=== PATIENT | female | born 1945 | race Two or more races ===

== ENCOUNTER 2024-02-25 05:32 | Observation (INO) | payer OTHER ==
[2024-02-24 12:05] LABS: Absolute Eosinophils 0.3 K/uL (0-0.5); Absolute Lymphocytes (CBC) 1.9 K/uL (0.7-4.9); Absolute Monocytes 0.4 K/uL (0.1-1.3); Absolute Neutrophil 1.7 K/uL (1.8-8.0); Basophils % 0.3 % (0-1.3); Eosinophils % 7.1 % (0-4.4); Hematocrit 42.7 % (36.0-45.0); Hemoglobin 14.1 g/dL (12.0-15.0); Lymphocytes % 44.4 % (15.3-44.8); MCH 29.2 pg (27.0-35.0); MCHC 32.9 g/dL (32.0-36.0); MCV 88.7 fL (80-100); MPV 7.8 fL (7.6-11.3); Monocytes % 9.8 % (3.3-12.3); Neutrophils % 38.4 % (41.7-73.7); Nucleated Red Blood Cells % 0.1 % (0-0); Platelets 204 thou/uL (152-406); RBC Red Blood Cell Count 4.82 M/uL (3.86-4.86); Red Cell Distribution Width 14.2 % (12.1-15.2)
[2024-02-24 12:09] LABS: PT Prothrombin Time 10.7 SECONDS (9.5-12.5); PTT, Activated Partial Thromb 34.6 SECONDS (24.3-36.9); Protime INR 0.97
[2024-02-24 12:20] LABS: Albumin 3.4 g/dL (3.4-5.0); Anion Gap 8.5 mEq/L (5.0-15.0); Bilirubin Total 0.5 mg/dL (0.2-1.0); Globulin 3.4 g/dL (2.3-3.5); Potassium 3.5 mEq/L (3.5-5.1); Protein, Total 6.8 g/dL (6.4-8.2)
--- NOTE | 2024-02-24 12:41 | RAD REPORT ---
EXAM DESCRIPTION: RAD - Chest Single View - 02/24/2024 12:35 pm CLINICAL HISTORY: PREOP Chest pain. COMPARISON: <Comparisons> FINDINGS: Portable technique limits examination quality. The lungs are grossly clear. The heart is normal in size. No displaced fractures. IMPRESSION: No acute intrathoracic process suspected.
[2024-02-24 12:54] LABS: Specific Gravity 1.007 (1.005-1.030); Urine Bilirubin NEGATIVE (Negative); Urine Blood Negative (Negative); Urine Clarity Clear (Clear); Urine Color Colorless (Yellow); Urine Glucose NEGATIVE (Negative); Urine Ketones NEGATIVE (Negative); Urine Microscopic Reflex YN NO UMIC; Urine Nitrite NEGATIVE (Negative); Urine Protein NEGATIVE (Negative); Urine Urobilinogen Normal (Normal); Urine pH 6.5 (5.0-7.0)
[2024-02-25] MEDS: Ringers Lactate 1,000 ML IV ONE ×2 (06:20→10:46)
[2024-02-25] MEDS: LIDOCAINE 1% MPF 5 ML VIAL ONE (06:23)
[2024-02-25] MEDS: FENTANYL CITR 100 MCG/2 ML ONE (06:24)
[2024-02-25] MEDS: EPINEPHRINE 1 MG/ML VIAL ONE (06:24)
[2024-02-25] MEDS: MIDAZOLAM HCL 2 MG/2 ML INJ ONE (06:25)
[2024-02-25] MEDS: BUPIVACAINE 0.25% PF 30 ML VIAL ONE (06:25)
[2024-02-25] MEDS: dexAMETHasone 4 MG/ML VIAL ONE ×2 (06:25→06:31)
[2024-02-25] MEDS: CELECOXIB 100 MG CAPSULE ONE (06:30)
[2024-02-25] MEDS: ACETAMINOPHEN 500 MG TAB ONE (06:30)
[2024-02-25] MEDS: Oxycodone HCl/Acetaminophen 5/325 MG TAB ONE (06:30)
[2024-02-25] MEDS: GABAPENTIN 100 MG CAP ONE (06:30)
[2024-02-25] MEDS: TRANEXAMIC ACID 1,000 MG/10 ML VIAL IV ONE (06:55)
[2024-02-25] MEDS ORDERED: propofoL 200 MG/20 ML VIAL IV ONE ×2 (07:06→07:56)
[2024-02-25] MEDS ORDERED: LIDOCAINE 1% MPF 5 ML VIAL ONE (07:06)
[2024-02-25] MEDS ORDERED: KETAMINE HCL IN 0.9 % NACL 50 MG/5 ML SYRINGE IV ONE (07:06)
[2024-02-25] MEDS: DEXMEDETOMIDINE HCL 200 MCG/2 ML VIAL ONE (07:09)
[2024-02-25] MEDS: MAGNESIUM SULFATE 1 gm IVPB 1 GM/100 ML BAG IV ONE (07:10)
[2024-02-25] MEDS: CEFAZOLIN SODIUM 2 GM/VIAL ONE (08:02)
[2024-02-25] MEDS ORDERED: EPHEDRINE SULF 50 MG/ML VIAL ONE ×2 (08:29→09:00)
[2024-02-25] MEDS ORDERED: KETOROLAC 30 MG/ML INJ ONE (08:42)
[2024-02-25] MEDS ORDERED: ONDANSETRON 4 MG/2 ML VIAL ONE (08:42)
[2024-02-25] MEDS ORDERED: dexAMETHasone 4 MG/ML VIAL ONE (08:42)
--- NOTE | 2024-02-25 09:58 | P.BOP ---
Preoperative diagnosis: left knee arthritis Postoperative diagnosis: left total knee arthoplasty Primary procedure: left total knee replacement Estimated blood loss: 100 ccs Anesthesia: General Complications: None Transferred to: Recovery Room Condition: Good
[2024-02-25] MEDS ORDERED: DOCUSATE NA 100 MG CAP PO PRN (10:01)
[2024-02-25] MEDS ORDERED: ONDANSETRON 4 MG/2 ML VIAL IV PRN (10:01)
[2024-02-25] MEDS ORDERED: HYDROCODONE/APAP 7.5/325 MG TAB PO PRN (10:01)
[2024-02-25] MEDS: NALOXONE 0.4 MG/ML VIAL ONE (10:49)
[2024-02-25 11:49] VITALS: O2SAT 98
[2024-02-25 12:55] VITALS: BMI 23.8
--- NOTE | 2024-02-25 15:58 | P.CNS ---
Date of Consult: 02/25/24 Reason for Consult: Medical management Requesting Physician: Darrick Fuentes Primary Care Provider: Dr. River Chief Complaint: Left knee pain History of Present Illness: 78-year-old female with history of hypertension is admitted to the hospital observation after having a left total knee replacement performed. Orthopedics physician has consulted hospital service for medical management Allergies No Known Allergies Allergy (Verified 02/25/24 07:27) Home Medications: Losartan/Hydrochlorothiazide [Losartan-Hctz 50-12.5 mg Tab] 1 tab PO DAILY 02/03 12/28 - Past Medical/Surgical History Diabetic: No -: htn Past Surgical History: Reviewed- Non-Contributory Psychosocial/ Personal History: Lives at home with family - Social History Smoking Status: Never smoker Alcohol use: No CD- Drugs: No Caffeine use: No Place of Residence: Home Review of Systems 10-point ROS is otherwise unremarkable Musculoskeletal: Leg Pain Physical Examination Temp Pulse Resp BP Pulse Ox 97.6 F 66 12 131/60 93 02/25/24 12:00 02/25/24 12:00 02/25/24 12:00 02/25/24 12:00 02/25/24 12:00 General: Alert, In no apparent distress, Oriented x3 HEENT: Atraumatic, PERRLA, EOMI Neck: Supple, 2+ carotid pulse no bruit, No LAD Respiratory: Clear to auscultation bilaterally, Normal air movement Cardiovascular: Regular rate/rhythm, Normal S1 S2 Gastrointestinal: Normal bowel sounds Musculoskeletal: Other (Dressing to left knee CDI) Integumentary: No rashes Neurological: Normal speech Conclusions/Impression: Assessment: Severe left knee osteoarthritis status post left total knee replacement 02/24 Hypertension Plan: Severe left knee osteoarthritis status post left total knee replacement 02/24 Working PT, ambulatory down hallway with assistance Continue as needed pain medication Plan for home physical therapy Anticoagulation, pain medications at home per Ortho Hypertension Losartan/HCTZ resumed DVT PPX: Lovenox/per orthopedics Code status: Full Critical Care: No Time Spent Managing Pts care (In Minutes): 30
[2024-02-25] MEDS: LOSARTAN/HCTZ 50-12.5 PO SCH (18:50)
[2024-02-25] MEDS: CEFAZOLIN 1 GM in NA CHLORIDE 0.9% 50 ML IVPB SCH (18:51)
[2024-02-25] MEDS: CEFAZOLIN SODIUM 1 GM/VIAL ONE (18:55)
--- NOTE | 2024-02-25 20:55 | OP ---
Date of Procedure: 02/25/2024 Surgeon: Darrick Fuentes MD Preoperative Diagnosis: Left knee arthritis. Postoperative Diagnosis: Left knee arthritis. Procedure: Left total knee arthroplasty using the [employer] Vanguard system. Estimated Blood Loss: 100 cc. Complication: There were no complications. Indications For Operation: Ms. Ramos is a 78-year-old female who has had debilitating knee pain fo r some time. This progressed despite conservative measures including injections and other medical tr eatment. Risks, benefits, and alternatives of total knee arthroplasty had been discussed with the nelsy crouch. She states she understands things as presented and wishes to proceed. Description Of Procedure: Patient was given a block in the holding area. She was then taken to the operating room, placed in the supine position. General anesthesia was easily obtained by the Anesthe beth staff. Following this, a well-padded tourniquet was placed on superior left thigh. Left lower e xtremity was then prepped and draped in the usual sterile fashion for the procedure. Following this, the leg was then gently exsanguinated with an Herman wrap. The knee was bent and tourniquet was raised . A standard anterior incision was taken down carefully through skin and soft tissues. Meticulous h emostasis being maintained using Bovie electrocautery. This led down to the appropriate level, which was then developed, which allowed for good visualization of the extensor mechanism. A standard medi al parapatellar arthrotomy was then performed with liberation of approximately 60 cc of rather normal -appearing synovial fluid. After this, the medial and lateral menisci as well as the ACL were remove d. Patella was everted and some fat pad was removed to allow for visualization. A drill was then us ed to establish the intramedullary alignment guide which was placed without difficulty and the distal femur was then cut. It was then sized to a size 65. The remaining femoral cuts with the exception of box were then completed. After this, attention was then turned to the tibia and the medial and la teral menisci were ensured to be excised and a standard tibia cut was then made with a small amount o f slope. This appeared to be a good cut. It was then sized. The trial tibia and femur were then pl aced. It comes to full extension and appears to be balanced in both flexion and extension. Attentio n was then turned to the patella, which was then calipered and cut using a new saw blade and irrigati on. It was then sized and the trial patella was then placed which appeared to glide ideally. The tr ial instruments were then removed and the distal femur was then addressed by placing a cut for the ha x. The box was completed and the tibia was punched. After this, bone surfaces were then prepped for cementation and the Vanguard system was then cemented in place with the exception of the polyethylen e for the tibia where a trial was placed as the cement hardened. All unsupported cement was removed. There was some cement used as a bone plug. After this, it was brought through range of motion and appears to be balanced in flexion and extension. The final polyethylene was placed and the cement wa s removed that was unsupported. A locking bar was placed. The wound was again copiously irrigated a nd the fascia was closed in a watertight fashion using heavy Ethibond sutures followed by closure of skin using Vicryl sutures and then stapled. She was placed in a well-padded sterile dressing, awaken ed, and taken to recovery room. There were no complications. SE/MODL Voice ID: [id number] Report ID: [id number]
[2024-02-26 04:19] LABS: Hematocrit 33.7 % (36.0-45.0); Hemoglobin 11.4 g/dL (12.0-15.0)
[2024-02-26] MEDS: ENOXAPARIN 30 MG/0.3 ML SQ SCH (05:57)
[2024-02-26 09:17] VITALS: BP 133/63; TEMP 97.3
[2024-02-26] MEDS: CEFAZOLIN 1 GM in NA CHLORIDE 0.9% 50 ML IVPB ONE (09:28)
--- NOTE | 2024-02-26 11:43 | P.PN ---
Date of Service: 02/26/24 Subjective: Doing well with physical therapy home health/PT set up ROS: 10 point ROS as noted above, otherwise negative General: Alert, In no apparent distress, Oriented x3 HEENT: Atraumatic, PERRLA, EOMI Neck: Supple, 2+ carotid pulse no bruit, No LAD Respiratory: Clear to auscultation bilaterally, Normal air movement Cardiovascular: Regular rate/rhythm, Normal S1 S2 Gastrointestinal: Normal bowel sounds Musculoskeletal: Other (Dressing to left knee CDI) Integumentary: No rashes Neurological: Normal speech Vitals reviewed Assessment: Severe left knee osteoarthritis status post left total knee replacement 02/24 Hypertension Plan: Severe left knee osteoarthritis status post left total knee replacement 02/24 Working PT, ambulatory down hallway with assistance Continue as needed pain medication Plan for home physical therapy DC today Anticoagulation, pain medications at home per Ortho Hypertension Losartan/HCTZ resumed, BP stable on this regiment DVT PPX: Lovenox/per orthopedics Code status: Budget Coordinator Spent Managing Pts Care (In Minutes): 20
--- NOTE | 2024-02-27 16:57 | EKG ---
Test Date: 2024-02-24 Test Time: 12:22:00 Senior Manufacturing Technician: JAMES MEASUREMENT RESULTS: Intervals: Rate: 52 WI: 174 QRSD: 82 QT: 448 QTc: 416 Rosalie: P: 78 WI: 174 QRS: 33 T: 32 INTERPRETIVE STATEMENTS: Sinus bradycardia Otherwise normal ECG No previous ECG available for comparison Electronically Signed On 02-27-24 16:45:50 CDT by Glynn Grace
== END 2024-02-26 10:35 | disposition home health service (06) ==
LOC: OR 05:32 → 2ND 09:58
PROVIDERS: ADMIT Orthopaedic Surgery; ATTEND Orthopaedic Surgery
PROC: 0SRD069 Replacement of Left Knee Joint with Oxidized Zirconium on Polyethylene Synthetic Substitute, Cemented, Open Approach (ICD-10-PCS; principal; 2024-02-25 07:00)
DX: M17.12 Unilateral primary osteoarthritis, left knee (principal); I10 Essential (primary) hypertension
CPT/HCPCS: 93005; 85025; 36415 ×2; 85610; 88305; 88311; 85730; 85018; 85014; 81003; 80053; 71045; 97110 ×2; 97116 ×2; 97139; 97161; 97530; 94010; 27447; C1776 ×3; J3475; J2704; J1100 ×3; J2310; J2001 ×2; J1650; J2250; J3010; J0171; J2405; J7120 ×2; J0690 ×4; G0378; G0379